=== PATIENT | male | born 2000 | race African-American/Black ===

== ENCOUNTER 2021-03-04 21:08 | Emergency (ER) | payer OTHER ==
[~2021-03-04] VITALS: Ht 162.6 cm; Wt 63.5 kg
[2021-03-04 22:10] LABS: PLATELET COUNT 326 K/uL (142-355)
[2021-03-04 22:16] LABS: POTASSIUM 3.7 mmol/L (3.6-5.2)
[2021-03-05 00:27] VITALS: BP 116/83; TEMP 98.8
== END 2021-03-05 00:27 | disposition home or self-care (01) ==
LOC: ED 21:08
PROVIDERS: Family Medicine
DX: T63.441A Toxic effect of venom of bees, accidental (unintentional), initial encounter (principal); Y92.89 Other specified places as the place of occurrence of the external cause
CPT/HCPCS: 80053; 85027; 96372; 96374; 99284; J0171; J2405; J2930